=== PATIENT | male | born 1955 | race Caucasian/White ===

== ENCOUNTER 2016-05-27 13:16 | Inpatient (IN) | payer BC ==
[2016-05-27] MEDS ORDERED: Diltiazem DRIP* 100 MG/100 ML ADDV.BAG IVPB ONE (14:27)
[2016-05-27] MEDS ORDERED: Dextrose 50% Syringe 50 ML* 25 GM/50 ML SYRINGE IV PUSH PRN (15:44)
[2016-05-27] MEDS ORDERED: Acetaminophen TAB* 325 MG PO PRN (15:45)
[2016-05-27] MEDS ORDERED: PROCHLORPERAZINE INJ 5 MG/ML 2 ML VIAL IV PRN (15:45)
[2016-05-27] MEDS ORDERED: Digoxin IV* 0.5 MG/2 ML AMP (0.25 MG/ML) IV SLOW PU ONE (16:00)
[2016-05-27] MEDS ORDERED: Magnesium Sulfate 2 GM IV* 2 GM/50 ML BAG IVPB ONE (16:00)
[2016-05-27] MEDS ORDERED: Potassium Chlor TAB* 20 MEQ TAB.ER PO ONE (16:00)
[2016-05-27] MEDS: Diltiazem DRIP* 100 MG/100 ML ADDV.BAG IVPB SCH ×3 (16:32→20:31)
[2016-05-27 16:37] LABS: Hematocrit 45 % (42-52); Hemoglobin 15.1 g/dl (14.0-18.0); Mean Corpuscular HGB Conc 34 g/dl (31-36); Mean Corpuscular Hemoglobin 30 pg (27-31); Mean Corpuscular Volume 90 fL (80-94); Mean Platelet Volume 10 um3 (7.4-10.4); Red Blood Count 5.01 10^6/ul (4.0-5.4); Red Cell Distribution Width 14 % (10.5-15)
[2016-05-27] MEDS: Metoprolol Tartrate TAB* 25 MG PO SCH ×2 (16:37→21:19)
[2016-05-27] MEDS: Enoxaparin(*) 150 MG/ML 1 ML SYRINGE SUBCUT SCH (16:45)
[2016-05-27 16:56] LABS: Troponin I 0.05 ng/mL (<0.04)
[2016-05-27 17:04] LABS: Magnesium 1.7 mg/dL (1.9-2.7)
[2016-05-27 17:05] LABS: BUN/Creatinine Ratio 17.3 (8-20); Calcium 9.5 mg/dL (8.6-10.3); EGFR African American 93.1 (>60); EGFR Non-African American 72.4 (>60); Globulin 2.8 g/dL (2-4); Potassium 3.4 mmol/L (3.5-5.0); Total Bilirubin 0.9 mg/dL (0.2-1.0); Total Protein 6.8 g/dL (6.4-8.9)
[2016-05-27] MEDS: Insulin LISPRO* 1 UNITS UNIT SUBCUT SCH ×3 (18:03→21:19)
[2016-05-27] MEDS: Potassium Chlor TAB* 20 MEQ TAB.ER PO SCH (20:34)
[2016-05-28] MEDS: Enoxaparin(*) 150 MG/ML 1 ML SYRINGE SUBCUT SCH ×2 (03:28→16:55)
[2016-05-28] MEDS: Metoprolol Tartrate TAB* 25 MG PO SCH ×2 (03:28→10:04)
[2016-05-28] MEDS: Diltiazem DRIP* 100 MG/100 ML ADDV.BAG IVPB SCH ×2 (03:35→10:29)
[2016-05-28 05:26] LABS: Hematocrit 46 % (42-52); Hemoglobin 15.3 g/dl (14.0-18.0); Mean Corpuscular HGB Conc 34 g/dl (31-36); Mean Corpuscular Hemoglobin 30 pg (27-31); Mean Corpuscular Volume 90 fL (80-94); Mean Platelet Volume 10 um3 (7.4-10.4); Red Cell Distribution Width 14 % (10.5-15); White Blood Count 9.4 10^3/ul (3.5-10.8)
[2016-05-28 05:31] LABS: Albumin 3.9 g/dL (3.2-5.2); BUN/Creatinine Ratio 22.7 (8-20); Calcium 9.5 mg/dL (8.6-10.3); EGFR African American 112.9 (>60); EGFR Non-African American 87.8 (>60); Globulin 2.9 g/dL (2-4); Potassium 3.7 mmol/L (3.5-5.0); Total Protein 6.8 g/dL (6.4-8.9)
[2016-05-28 05:36] LABS: Troponin I 0.04 ng/mL (<0.04)
[2016-05-28] MEDS: Lisinopril TAB* 10 MG PO SCH (08:36)
[2016-05-28] MEDS: Hydrochlorothiazide TAB* 25 MG PO SCH (08:36)
[2016-05-28] MEDS: Insulin LISPRO* 1 UNITS UNIT SUBCUT SCH ×7 (08:37→21:08)
[2016-05-28] MEDS: Potassium Chlor TAB* 20 MEQ TAB.ER PO SCH ×2 (08:37→16:54)
--- NOTE | 2016-05-28 09:26 | RAD ---
Indication: Elevated transaminases. Real-time sonography of the right upper quadrant was performed. Liver is enlarged measuring up to 18 cm in length. It is diffusely increased in echogenicity consistent with hepatic steatosis. No focal lesions or intrahepatic ductal dilatation is noted. Gallbladder demonstrates no gallstones, pericholecystic fluid or wall thickening. The common duct measures up to 4 mm. Right kidney measures 12.0 x 6.8 x 5.8 cm with no hydronephrosis. A cyst is noted in the posterior upper pole measuring 3.8 x 3.5 x 3.2 cm. The pancreas is limited in evaluation. IMPRESSION: HEPATOMEGALY WITHOUT BILIARY DUCTAL DILATATION. FINDINGS CONSISTENT WITH PARENCHYMAL LIVER DISEASE MOST LIKELY HEPATIC STEATOSIS.
--- NOTE | 2016-05-28 09:36 | HP ---
HISTORY AND PHYSICAL: DATE OF ADMISSION: 05/27/16. TIME OF EVALUATION: 3 p.m. PRIMARY CARE PROVIDER: Lauren Monson MD CONSULTING CUSTOMER CONTACT REPRESENTATIVE: Dr. Mota CHIEF COMPLAINT: Palpitations. HISTORY OF PRESENT ILLNESS: Mr. Linn is a 60-year-old male with a past medical history of hypertension, type-II diabetes, morbid obesity with BMI of 43 , sleep apnea, and gout who presented to the [facility] Emergency Room with complaints of palpitations. The patient states that he has had palpitations for more than 20 years. He had Holter monitor done at that time, and it showed that his palpitations were not life threatening, and he has been on Cardizem and metoprolol for his blood pressure control. He states that he still has palpitations almost daily, but they are very brief, lasting 5 seconds , and he is states that now-a-days he just ignores it. Last night around 7, he was watching TV when he had the sudden onset of a flushing sensation followed by his palpations, but this episode was different in the sense that it lasted much longer. He denied chest pain, shortness of breath, diaphoresis associated with it. He has a blood pressure monitor, when he checked his blood pressure and it had shown the heart rate of 160. He states , he was feeling well so he just decided to go to bed. This morning, he woke up asymptomatic, measured his blood pressure again and his heart rate was in the 40s, so he decided to get ready for work. Before going to work, he checked it one more time and his heart rate was in the 60s. While at work, he had the similar sensation again and he had taken his monitor with him. He checked it once again, and his heart was 160, so he went to [place] [facility]. His EKG revealed atrial fibrillation with a heart rate of 155; and, after evaluation there, the hospital service at [facility] was consulted for transfer to our facility for further evaluation. The patient at this time says that he feels well. Although his heart rate is still elevated, he states he does not feel the palpitations any more. He denies chest pain, shortness of breath, diaphoresis, or any other complaints. He denies any recent trip, fever, chills, urinary or GI complaints. PAST MEDICAL HISTORY: 1. Type-2 diabetes. 2. Hypertension. 3. Hyperlipidemia. 4. Morbid obesity with BMI of 43. 5. Obstructive sleep apnea, on CPAP. 6. Gout. SURGICAL HISTORY: The patient had a tonsillectomy. MEDICATION LIST: 1. Clonidine 0.2 mg p.o. bedtime. 2. Metoprolol succinate 100 mg p.o. b.i.d. 3. Lisinopril 40 mg p.o. daily. 4. Metformin 1000 mg p.o. b.i.d. 5. Hydrochlorothiazide 25 mg p.o. daily. 6. Diltiazem CD 240 mg p.o. b.i.d. ALLERGIES: 1. With ATENOLOL, the patient experienced night terrors. 2. With CANDESARTAN, the patient had hearing loss. 3. With [? GARAMYCIN ?], the patient had eye swelling. 4. His list also mentions VISTARIL AND [? PREMARIN ?], but the patient does not know what reactions he had to those medications. FAMILY HISTORY: The patient was adopted, and he does not know about his family history. SOCIAL HISTORY: He denies any history of tobacco abuse. He states that in his teenage years, he drink heavily, but he totally quit alcohol in his 40s. He does drink five 8-ounce cups of regular coffee every day. He denies any drug use. Surrogate decision maker is his , Ellen Linn, ph# [phone]. REVIEW OF SYSTEMS: A 14-point of review of system was performed and all the pertinent negative and positive findings are in the HPI. PHYSICAL EXAMINATION GENERAL: The patient is a pleasant, morbidly-obese gentleman sitting up in the bed in no acute distress. VITAL SIGNS: Temperature 98.6, heart rate is 140, respiratory rate is 18, oxygen saturation is 96% on room air, blood pressure is 150/100. HEENT: Pupils are equal and moist mucous membranes. CVS: Normal S1 and S2. Irregularly irregular, tachycardiac. CHEST: Breath sounds bilaterally with no added sounds. ABDOMEN: Obese, soft, and bowel sounds are present. EXTREMITIES: There is mild bilateral extremity pitting edema. NEURO: He is alert, awake and oriented x3. Able to move all 4 extremities. LABORATORY AND IMAGING DATA: These results are from [facility] earlier today. CBC showed a WBC of 11.3, hemoglobin 15.3, hematocrit 45 with 212,000 platelets. 57% neutrophils, 29% lymphocytes. INR was 0.98. D-dimer is less than 400. Glucose 198.3, BUN 20, creatinine 1.1, sodium 140, potassium 3.4, chloride 100, carbon dioxide 27, anion gap 16.3, calcium 9.6. LFT's showed total protein 7.1, albumin 3.7, AST 43, ALT 72, CPK 175, troponin was 0.04. EKG done on May 27 at 11:39 showed atrial fibrillation at 155 beats per minute with moderate ST depressions on the anterolateral leads, but I do not have any prior EKGs to compare. ASSESSMENT AND PLAN: Mr. Linn is a 60-year-old male with a past medical history of morbid obesity with a BMI of 43, type 2 diabetes, hypertension, prior history of palpitations (likely SVT), obstructive sleep apnea on CPAP, and gout who presented to [facility] Emergency Room with complaints of found to be an atrial fibrillation, transferred to our facility for further evaluation. 1. Atrial fibrillation with rapid ventricular rate. It is unclear if this is truly his first episode of atrial fibrillation. He has had episodes of palpitations for more than 20 years and, although self-limited, the patient is on metoprolol and diltiazem as outpatient, and this may be controlling his rate and for that reason he may not me symptomatic. He is going to be admitted as inpatient to the telemetry floor. He is going to be continued on Cardizem drip, on a beta matheus, and I am going to give him one dose of digoxin now. If he is on the maximum dose of the Cardizem drip and we cannot obtain control, we may need to transfer him to the Intensive Care Unit for amiodarone drip. I am going to check labs here including electrolytes, thyroid function and cardiac enzymes. He is also going to have an echocardiogram performed, and a cardiologic consultation was requested with Dr. Mota. He has a CHADS2-VASc score of 2 so far (hypertension and diabetes) with further work up pending, but I believe this patient will likely need cardioversions, so the plan is to have him anticoagulated with Lovenox. We discussed risk and benefits of anticoagulation including, but not limited to the risk of bleeding, and the patient is in agreement. He will be kept n.p.o. after midnight in case he does not convert spontaneously for a possible cardioversion in the morning. 2. Troponin elevation. His troponin at [facility] was 0.04, and I suspect this is likely associated with his atrial fibrillation rapid ventricular lead. We are going to check serial troponins here to rule out acute coronary syndrome. 3. Transaminitis. Suspect likely fatty liver in the setting of morbid obesity and type-2 diabetes. I am going to check a right upper quadrant ultrasound to look for biliary pathology and also check hepatitis serology. 4. Type 2 diabetes. The patient is on metformin as outpatient. We are going to hold it for now pending further work up. He will be on a consistent carb diet, and we are going to check fingersticks and cover with a Lispro sliding scale. We are going to check hemoglobin A1c. 5. Hypertension. The patient will be on a Cardizem drip. I am going to continue his hydrochlorothiazide, lisinopril, and he is now on metoprolol 25 mg p.o. q. 6 hours. We are going to continue to monitor his blood pressure; and, if needed, we can add his clonidine again, I will prefer to reserve his blood pressure for rate controlling meds. 6. Obstructive sleep apnea. The patient will be continued on CPAP. 7. DVT prophylaxis. The patient had a score of 4 on the DVT prophylaxis Risk Assessment Guide and he will be anticoagulated with Lovenox. 8. Code status is full code. TIME SPENT: Approximately 65 minutes were spent with the patient and interview, medical records review, physical examination, to complete this admission, and more than half the time was spent [id number] with the patient in coordination of care. CC: Dr. Monson; Dr. Mota * [id number]/[facility] #: [id number] ALYSSA
--- NOTE | 2016-05-28 11:50 | PN ---
Subjective Date of Service: 05/28/16 Interval History: HOSPITALIST PROGRESS NOTE Patient seen and examined at bedside. He offers no new complaints today. Denies chest pain, palpitations, dyspnea or lightheadedness. Family History: Unchanged from Admission Social History: Unchanged from Admission Past Medical History: Unchanged from Admission Objective Active Medications: Acetaminophen (Tylenol Tab*) 650 mg PO Q6H PRN PRN Reason: pain/fever Dextrose (D50w Syringe 50 Ml*) 12.5 gm IV PUSH .FOR FS < 60 - SS PRN PRN Reason: FS < 60 Enoxaparin Sodium (Lovenox(*)) 130 mg SUBCUT Q12H [facility] Last Admin: 05/28/16 03:28 Dose: 130 mg Hydrochlorothiazide (Hydrodiuril Tab*) 25 mg PO DAILY [facility] Last Admin: 05/28/16 08:36 Dose: 25 mg Diltiazem HCl (Cardizem Iv Advan*) 100 mg in 100 mls @ 15 mls/hr IVPB DAILY [facility] PRN Reason: 15 MG/HR Last Admin: 05/28/16 10:29 Dose: 15 mls/hr Insulin Human Lispro (Humalog*) 0 units SUBCUT AC [facility] PRN Reason: Protocol Last Admin: 05/28/16 08:39 Dose: Not Given Insulin Human Lispro (Humalog*) 0 units SUBCUT ACHS [facility] PRN Reason: Protocol Last Admin: 05/28/16 08:37 Dose: 6 unit Lisinopril (Prinivil Tab*) 40 mg PO DAILY [facility] Last Admin: 05/28/16 08:36 Dose: 40 mg Metoprolol Tartrate (Lopressor Tab*) 25 mg PO Q6H [facility] Last Admin: 05/28/16 10:04 Dose: Not Given Potassium Chloride (Klor Con Er Tab*) 40 meq PO BID WITH MEALS [facility] Last Admin: 05/28/16 08:37 Dose: 40 meq Prochlorperazine Edisylate (Compazine Inj*) 5 mg IV Q6H PRN PRN Reason: NAUSEA/VOMITING Vital Signs 05/27/16 05/27/16 05/27/16 14:29 14:30 14:35 Temperature Pulse Rate 89 76 Respiratory 18 18 19 Rate Blood Pressure 151/89 121/104 (mmHg) O2 Sat by Pulse 95 93 Oximetry 0205/28/16 05/28/16 08:00 09:00 10:00 Temperature Pulse Rate 85 91 128 Respiratory 22 15 20 Rate Blood Pressure (mmHg) O2 Sat by Pulse 97 96 97 Oximetry Oxygen Devices in Use Now: None Appearance: Pleasant obese male sitting up in a chair in NAD. Eyes: No Scleral Icterus Ears/Nose/Mouth/Throat: Mucous Membranes Moist Neck: Trachea Midline Respiratory: Symmetrical Chest Expansion and Respiratory Effort, Clear to Auscultation Cardiovascular: - - Normal S1 and S2, irregularly irregular, tachycardic Abdominal: NL Sounds; No Tenderness; No Distention Neurological: Alert and Oriented x 3, NL Muscle Strength and Tone Lines/Tubes/Other Access: Clean, Dry and Intact Peripheral IV Nutrition: Taking PO's Result Diagrams: 05/28/16 04:43 05/28/16 04:43 Assess/Plan/Problems-Billing Assessment: Mr. Linn is a 60yo M with PMH of morbid obesity with a BMI of 43, HTN, HLD , DWIGHT on CPAP, gout, who presented to [facility] with c/o palpitations, found to be in Afib with RVR, then transferred to our Facility for further evaluation. - Patient Problems (1) Atrial fibrillation with RVR Comment: - Patient remains asymptomatic, but rate is still uncontrolled. - Cardiology plans to perform transesophageal echo with cardioversion later today. - Continue diltiazem drip and metoprolol. - Anticoagulation with Lovenox for now, will discuss other agents after CV. (2) Elevated troponin Comment: - Minimal elevation likely secondary to Afib with RVR, but he does have risk factors for CAD. Will need stress test for further risk stratification , probably as outpatient. (3) Transaminitis Comment: - Labs from [place] revealed transaminitis, but follow up here has been normal. - Follow hepatitis serologies. - RUQ US compatible with hepatic steatosis. (4) Type 2 diabetes mellitus Comment: - Continue Lispro SS. (5) HTN (hypertension) Comment: - Controlled. - Continue Diltiazem and Metoprolol. (6) Obstructive sleep apnea Comment: - Continue CPAP. (7) DVT prophylaxis Comment: - Lovenox. (8) Full code status Status and Disposition: Inpatient.
[2016-05-28] MEDS ORDERED: Midazolam* 1 MG/ML 5 ML VIAL (5 MG) ONE (13:49)
[2016-05-28] MEDS ORDERED: Lidocaine 2% VISCOUS* 15 ML UDC ONE (13:50)
[2016-05-28] MEDS ORDERED: fentaNYL* 50 MCG/ML 2 ML VIAL (100 MCG VIAL) ONE (13:50)
[2016-05-28] MEDS ORDERED: Naloxone* 0.4 MG/ML 1 ML VIAL ONE (13:50)
[2016-05-28] MEDS ORDERED: Flumazenil* 0.1 MG/ML 5 ML MDV ONE (13:50)
[2016-05-28] MEDS ORDERED: Diltiazem DRIP* 100 MG/100 ML ADDV.BAG IVPB SCH (15:00)
--- NOTE | 2016-05-28 15:41 | TEE ---
Patient: SUYAPA MARTINEZ [facility] Rec#: [id number] : 1955 Date: 05/28/2016 Age: 60y Height: 172.7 cm / 68.0 in Weight: 128.4 kg / 283.0 lbs Sex: M BSA: 2.37 Room#: [facility] Admit Date#: 05/27/2016 Type: Inpatient Referring: Elise Kemp MD Performing: Bharat Mota MD Reading: Bharat Mota MD Associate Financial Planner: Nakia Ryan RN RDCS Nurse: CHUCK Reis Alicia CC: Lauren Monson MD Transesophageal Echocardiogram Indication: A-FIB BP: 149/107 HR: 150 Rhythm: A-Fib Findings History: HTN, DM, DWIGHT with CPAP. Technical Comments: The study quality is good. Left Ventricle: The left ventricular chamber size is normal. Left ventricular systolic function is at the lower limits of normal. The estimated ejection fraction is 50-55%. Difficult to make an accurate estimate given rapid a fib. The assessment of diastolic function is non-diagnostic. Left Atrium: The left atrium is moderately dilated. No thrombus is visualized within the left atrium. There is no thrombus visualized in the left atrial appendage. Right Ventricle: The right ventricular cavity size is normal. The right ventricular global systolic function is low normal. Right Atrium: The right atrium is moderately dilated. Interatrial septum appears intact without evidence of shunting. There is no patent foramen ovale visualized. The bubble study is negative. Aortic Valve: The aortic valve is trileaflet. The aortic valve leaflets are mildly thickened. There is a trace of aortic regurgitation. There is no evidence of aortic stenosis. Mitral Valve: The mitral valve leaflets are mildly thickened. There is a trace of mitral regurgitation. There is no evidence of mitral stenosis. Tricuspid Valve: The tricuspid valve leaflets are normal. There is mild tricuspid regurgitation. There is no tricuspid stenosis. Pulmonic Valve: The pulmonic valve appears normal. There is a trace pulmonic regurgitation. Pericardium: There is no significant pericardial effusion. Aorta: There is no dilatation of the ascending aorta. There is no dilation of the aortic root.There is mild atherosclerotic plaque seen in the transverse and descending aorta. Pulmonary Artery: The main pulmonary artery appears normal. Venous: The bicaval view was obtained and appears normal. The pulmonary veins appear normal in size. 2 of 4 pulmonary veins visualized and interrogated with color and spectral Doppler. LASHA Procedures: All standard views were attempted within the limitations of patient tolerance and safety. History and physical as well as labs were reviewed. The patient was in a fasting state. Risks and benefits of the procedure, including alternatives, were discussed and written informed consent was obtained. The patient and/or their health care technical sales representative expressed understanding of the procedure, risks and benefits. Baseline and continuous monitoring of blood pressure, heart rate, pulse oximetry and heart rhythm was performed throughout the procedure. The appropriate time-out procedure was performed as per [facility] protocol. The patient was placed in the left lateral decubitus position. The patient's posterior pharynx was anesthetized with 20ml of 2% viscous lidocaine. The patient received IV Midazolam with a total dose of 4 mg. The patient received IV Fentanyl with a total dose of 50 mcg. An oral bite block was inserted for protection of oral dentition. The multiplane transesophageal echocardiogram probe was inserted through the posterior oropharynx and advanced into the esophagus without difficulty. Multiple 2D images were obtained of the heart and its related structures. Color flow Doppler was used for evaluation. Spectral Doppler was also used. The atrial septum was interrogated with color flow Doppler. At the conclusion of the procedure the probe was removed with continuous suction without complications. The patient tolerated the procedure with no apparent complications. Contrast: Normal saline was used as contrast for the bubble study. Intravenous contrast was used to help determine presence of intracardiac shunting. Image 44. Conclusions Left ventricular systolic function is at the lower limits of normal. The estimated ejection fraction is 50-55%. Difficult to make an accurate estimate given rapid a fib. The left atrium is moderately dilated. No thrombus is visualized within the left atrium. There is no thrombus visualized in the left atrial appendage. The right atrium is moderately dilated. There is a trace of aortic regurgitation. There is a trace of mitral regurgitation. There is mild tricuspid regurgitation. There is a trace pulmonic regurgitation. Measurements Name Value Normal Range Aortic Annulus 2.3 cm (1.4 - 2.6) Ao root diameter (2D) 3.3 cm (2.1 - 3.5) Ascending Ao 3.1 cm (2.1 - 3.4) Name Value Normal Range MV E-wave Vmax 0.9 m/sec - MV deceleration time 63 msec -
[2016-05-28] MEDS: Diltiazem CD CAP* 240 MG PO SCH (17:48)
--- NOTE | 2016-05-28 19:29 | CONS ---
CONSULTATION REPORT: DATE OF CONSULT: 05/28/16 HISTORY OF PRESENT ILLNESS: I was asked by Dr. Anne from the hospitalist service to see this 60-year-old male patient with complex comorbidities, who was transferred from [facility] with tachycardia and apparently was found to be in atrial fibrillation. He was started on Cardizem IV and he is still tachycardic. He does have significant comorbidities including morbid obesity; sleep apnea, on CPAP; hyperlipidemia; systemic arterial hypertension; diabetes mellitus, type 2. Cardiology consult was requested for further management of his rapid atrial fibrillation. When speaking to him he gives no history. There is some history of atrial fibrillation in the past. He gives no symptoms of chest pain. He does have no active shortness of breath, no nausea, no vomiting, no hematochezia, no skin rash, no abdominal pain, no syncope. No history of myocardial infarction. No history of coronary artery disease is appreciated. PAST MEDICAL HISTORY: Includes: Systemic arterial hypertension; diabetes mellitus, type 2; hyperlipidemia; morbid obesity; obstructive sleep apnea, on CPAP; history of gout disease. PAST SURGICAL HISTORY: Includes tonsillectomy. MEDICATIONS: As an outpatient include: 1. Clonidine 0.2 mg daily. 2. Metoprolol 100 mg twice a day. 3. Lisinopril 40 mg daily. 4. Metformin 1000 mg twice a day. 5. Hydrochlorothiazide 25 mg daily. 6. Diltiazem CD 240 mg twice a day. His medications as an inpatient include: 1. Tylenol 650 mg p.o. q.6 hours p.r.n. for pain. 2. Diltiazem 10 mg per hour IV. 3. Lovenox 130 mg subcu q.12 hours. 4. Hydrochlorothiazide 25 mg daily. 5. Insulin adjusted to his blood sugar. 6. Lisinopril 40 mg daily. 7. Metoprolol 100 mg twice a day. 8. Potassium 40 mEq twice a day. ALLERGIES: He is allergic to ATENOLOL with night terrors, questionable allergy to CANDESARTAN. FAMILY HISTORY: The patient was adopted. SOCIAL HISTORY: No history of smoking, no significant alcohol drinking, no history of illicit drug use. He does drink coffee five of the 8-ounce cups of regular coffee daily. He used to drink alcohol heavily but he quit. REVIEW OF SYSTEMS: Review of all other systems essentially is negative. PHYSICAL EXAM: He is awake, alert, and oriented. He is in not acute distress. He had no chest pain. His vitals: Heart rate is 160, he is in AFib rapid, he is afebrile, blood pressure is 140/70. Head and Neck: Normocephalic, atraumatic head. Ears, nose, and throat essentially benign. Neck supple. JVP is not elevated. No carotid bruit. No masses in the neck are appreciated. Chest: Clear to auscultation. No rales, no wheeze, no added sounds appreciated. Heart with tachycardic, regular S1, S2. No added sounds. No gallops and no rubs. Abdomen: Benign, obese, soft. Positive bowel sounds. Extremities: No edema. No cyanosis and no clubbing. Skin exam is normal. Psych: Normal affect and mood. ADJUNCT PSYCHOLOGY PROFESSOR: No focal deficits are appreciated. LABORATORY DATA: His labs showed the following: White blood cells 9.4, hemoglobin 15.3, hematocrit 46, and platelets 188. Chemistry: Sodium 135, potassium 3.7, chloride 101, total CO2 26, BUN 20, creatinine 0.88, sugar 204. Troponin 0.06 and other 1.04. IMPRESSION: The patient is a 60-year-old male patient with: 1. Rapid atrial fibrillation. 2. Systemic arterial hypertension. 3. Diabetes mellitus, type 2. 4. Morbid obesity. 5. Sleep apnea, on CPAP. 6. Hyperlipidemia. 7. Significant caffeinated drinks. PLAN: He does have significant comorbidities. I agree with rate controlling on IV Cardizem for now. I agree with anticoagulation. His CHADS-VASc scoring system is high based on his comorbidities as outlined above. Avoid alcohol, avoid caffeinated drinks, avoid stimulants, and stay well hydrated. Keep potassium and magnesium within normal limits and plan for transesophageal echo. Cardioversion to be done if his transesophageal echo showed no evidence of clots in the left atrium or in the left atrial appendage, we will proceed with direct current cardioversion. This was discussed with the patient. I answered all his concerns and questions up to his satisfaction. He is willing to proceed with the plan. TIME SPENT: More than half of at least 60 to 65 plus minutes was [id number] in the education and counseling mode, explaining all of the above to the patient. CC: Dr. Anne; Dr. Monson; Dr. Mota * [id number]/[facility] #: [id number] ALYSSA
[2016-05-28] MEDS: Metoprolol Succinate XL TAB* 100 MG PO SCH ×2 (20:49→22:16)
--- NOTE | 2016-05-28 22:33 | CARD ---
DIRECT CURRENT CARDIOVERSION REPORT: DATE OF PROCEDURE: 05/28/16 - ROOM #442 INDICATION: The patient is a 60-year-old male patient who was hospitalized with rapid atrial fibrillation. He continues to be in rapid AFib symptomatic after IV Cardizem drip. He did receive anticoagulation in the form of Lovenox injection. A transesophageal echocardiogram was further requested to guide this cardioversion. DESCRIPTION OF PROCEDURE: After informed written consent had been obtained with continuous blood pressure, pulse oximetry, and heart rate monitoring and after performing a transesophageal echocardiography, please refer to a full separate report that was showing no evidence of clots or thrombus in the left atrium or in the left atrial appendage. There were no masses, no vegetations. The patient did receive initially a total dose of 4 mg intravenous Versed and then 50 mcg of fentanyl intravenously and after the LASHA, he received an additional 2 mg intravenous dose of Versed and 25 mcg of fentanyl. After than, a synchronized biphasic 200 joules were delivered to the patient once successfully converting him to normal sinus rhythm. There were no complications and the patient tolerated procedure very well. CONCLUSION: Successful direct current cardioversion for atrial fibrillation. There were no complications and the patient tolerated the procedure very well. CC: Hospitalist Service; Dr. Lezama; Dr. Mota * [id number]/[facility] #: [id number] [facility]
[2016-05-29] MEDS: Enoxaparin(*) 150 MG/ML 1 ML SYRINGE SUBCUT SCH (03:19)
[2016-05-29 07:28] VITALS: BP 135/73
[2016-05-29 09:30] LABS: HDL Cholesterol 34.1 mg/dL
[2016-05-29] MEDS: Insulin LISPRO* 1 UNITS UNIT SUBCUT SCH ×2 (09:31→09:32)
[2016-05-29] MEDS: Potassium Chlor TAB* 20 MEQ TAB.ER PO SCH (09:32)
[2016-05-29] MEDS: Diltiazem CD CAP* 240 MG PO SCH (09:33)
[2016-05-29] MEDS: Lisinopril TAB* 10 MG PO SCH (09:33)
[2016-05-29] MEDS: Hydrochlorothiazide TAB* 25 MG PO SCH (09:33)
[2016-05-29] MEDS: Metoprolol Succinate XL TAB* 100 MG PO SCH (09:33)
--- NOTE | 2016-05-29 21:13 | DS ---
CC: Dr. Lauren Monson; Dr. Mota DISCHARGE SUMMARY: DATE OF ADMISSION: 05/27/16 DATE OF DISCHARGE: 05/29/16 PRIMARY CARE PROVIDER: Dr. Lauren Monson. CONSULTING BUSINESS SUPPORT LIAISON: Dr. Mota. DISCHARGE DIAGNOSES: 1. Atrial fibrillation with rapid ventricular rate, status post cardioversion. 2. Minimally elevated troponin, likely associated with atrial fibrillation. 3. Transaminitis, likely associated with hepatic steatosis. SECONDARY DIAGNOSES: 1. Type 2 diabetes. 2. Hypertension. 3. Hyperlipidemia. 4. Morbid obesity with a BMI of 43. 5. Obstructive sleep apnea, on CPAP. 6. Gout. 7. Status post tonsillectomy. MEDICATIONS: 1. Metoprolol succinate 100 mg p.o. b.i.d. 2. Lisinopril 40 mg p.o. daily. 3. Metformin 1000 mg p.o. b.i.d. 4. Hydrochlorothiazide 25 mg p.o. daily. 5. Diltiazem CD 240 mg p.o. b.i.d. 6. Clonidine was discontinued. NEW MEDICATIONS: 1. Potassium chloride 20 mEq p.o. daily. 2. Eliquis 5 mg p.o. b.i.d. HOSPITAL COURSE: Mr. Linn is a 60-year-old male with a past medical history as stated above w ho presented to the emergency room at [facility] with complaints of palpitations. For more d etails about his presentation, I refer you to my history and physical from 05/27/16 but in summary, the patient started to have palpitations the day prior to admission when she was in [facility] and was found to be in atrial fibrillation with a rapid ventricular rate of 160 and was transferre d to our facility for further evaluation and treatment. The patient was treated with Cardizem drip, metoprolol and digoxin, but rate control was still diffi cult. He was seen in consultation by Cardiology, (Dr. Mota), and his plan was for a transesoph ageal echocardiogram with cardioversion. The procedure was performed on 05/28/16. The transesophag eal echocardiogram showed ejection fraction of 50% to 55%. No thrombus was visualized on left atriu m or left atrial appendage and a successful cardioversion was performed. Dr. Mota recommended avoiding alcohol, caffeinated drinks, and other stimulants and to stay well hydrated. He also recom mended keeping potassium and magnesium within normal limits. The patient's BRITTANY score is 2, (hypert ension and diabetes), and the plan is for him to continue anticoagulation. We have reviewed risks a nd benefits with the patient on multiple modalities of anticoagulation and we have elected to start Eliquis. The patient is aware of the risk of bleeding, but he agrees that at this point benefit geraldine passes the risk. If the patient remains in sinus rhythm, Cardiology could consider discontinuing an ticoagulation as outpatient, but with his history I believe he is probably going to have recurrent a trial fibrillation. Dr. Mota recommended continuation of metoprolol and Cardizem, but if the p atient has recurrence of atrial fibrillation, he may need different antiarrhythmics. The patient had minimally elevated troponins of 0.05, 0.06, and 0.04. This is likely secondary to a trial fibrillation with rapid ventricular rate, but the patient certainly has risk factors for coron herrera artery disease and we will benefit further CAD risk stratification as outpatient, so when he fol lows up with Dr. Mota, I believe arrangement should be made for a stress test. On his blood test from [place], the patient was noted to have mild transaminitis. Hepatitis serolog y was negative and right upper quadrant ultrasound showed changes suggestive of hepatic steatosis. The patient does have hyperlipidemia with significant hypertriglyceridemia with triglycerides of 434 . This will need to be addressed as outpatient. At this point, we cannot measure his LDL due to hi s triglycerides. He will follow up with Dr. Monson next week and I believe if he cannot control th is with diet, he should be started on fibrates. He was referred to the [facility] for further management of his obesity and diabetes, and they can also address dietary changes f or his hyperlipidemia. The patient's hemoglobin A1c was 8.5. He is being discharged on his usual dose of metformin, but I believe he would have great benefit from further dietary education and dietary compliance. While in the hospital, his glucose remained fairly well controlled and he did not require a lot of coverage, so I believe he is able to change his diet as outpatient. He may be able to do well. Without clonidine, the patient's blood pressure has been well controlled, especially after he was ca rdioverted, so at this point his clonidine was discontinued, but this will need to be monitored as o utpatient as his blood pressure may trend up again, especially if he returns to his old diet. The patient was felt to be medically stable for discharge today to follow up with Dr. Monson and Dr Ny Mota as outpatient. PHYSICAL EXAMINATION: Vital Signs: Temperature 97.9, heart rate is 68, respiratory rate is 16, oxy gen saturation is 96% on room air, blood pressure is 135/73. General: The patient is a pleasant mo rbid obese gentleman sitting up in the chair, in no acute distress. CVS: Normal S1, S2. Regular r ate and rhythm. Chest: Breath sounds present bilaterally with no added sounds. Abdomen: Obese and soft. Bowel sounds are present. Extremities: There is mild bilateral lower extremity edema. Dre ro: He is alert, awake, and oriented x3. Able to move all 4 extremities. DIET: Heart healthy consistent carb diet. The patient was advised to avoid caffeine. ACTIVITY: As tolerated. The patient was advised to avoid excessive physical exertion like ploughin g his driveway. DISPOSITION: To home. STATUS WHILE IN THE HOSPITAL: Inpatient. Please keep in mind this is a summarized version of this patient's hospital stay. If you need more i nformation, please feel free to call me at [phone] or please obtain the full medical records. TIME SPENT: Approximately 45 minutes was spent to complete this discharge. All the patient's and h is 's questions were answered. [id number] #: [id number]
== END 2016-05-29 11:10 | disposition home or self-care (01) | DRG 201 ==
LOC: MEDTELE 14:22
PROVIDERS: ADMIT Internal Medicine; ATTEND Internal Medicine
PROC: 5A2204Z Restoration of Cardiac Rhythm, Single (ICD-10-PCS; principal; 2016-05-28 13:45)
DX: I48.91 Unspecified atrial fibrillation (principal); Z68.41 Body mass index [BMI] 40.0-44.9, adult; K76.0 Fatty (change of) liver, not elsewhere classified; E11.9 Type 2 diabetes mellitus without complications; I10 Essential (primary) hypertension; E66.01 Morbid (severe) obesity due to excess calories; G47.33 Obstructive sleep apnea (adult) (pediatric); M10.9 Gout, unspecified; Z79.84 Long term (current) use of oral hypoglycemic drugs; E78.1 Pure hyperglyceridemia; E78.5 Hyperlipidemia, unspecified; Z88.8 Allergy status to other drugs, medicaments and biological substances
CPT/HCPCS: 36415; 76705; 80053; 80061; 80074; 83036; 83735; 84443; 84484; 85025; 92960; 93005; 93312; 93325; 94660; A9270-GY; J1160; J1650; J2250; J2310; J3010; J3475

== ENCOUNTER 2019-10-16 21:13 | Inpatient (IN) ==
[2019-10-16] MEDS ORDERED: NS 0.9% 1000 ml BAG 1,000 ML IV ONE (21:26)
[2019-10-16] MEDS ORDERED: Diltiazem IV push/loading dose 5 MG/ML 5 ML vial (25 mg) IV SLOW PU ONE (22:01)
[2019-10-16 22:03] LABS: ABS Eosinophils 0.2 10^3/ul (0-0.6); ABS Lymphocytes 2.5 10^3/ul (1.0-4.8); ABS Monocytes 0.8 10^3/ul (0-0.8); Hematocrit 44 % (42-52); Hemoglobin 15.5 g/dL (14.0-18.0); Mean Corpuscular HGB Conc 35 g/dL (31-36); Mean Corpuscular Hemoglobin 32 pg (27-31); Mean Corpuscular Volume 92 fL (80-94); Mean Platelet Volume 8.9 fL (7.4-10.4); Platelet Count 201 10^3/uL (150-450); Red Blood Count 4.78 10^6 /uL (4.18-5.48); Red Cell Distribution Width 14 % (10-15); White Blood Count 8.7 10^3/uL (3.5-10.8)
[2019-10-16 22:09] LABS: INR 1.06 (0.82-1.09)
[2019-10-16 22:43] LABS: TSH (Thyroid Stimulating Horm) 1.17 mcIU/mL (0.34-5.60)
[2019-10-16 22:54] LABS: Albumin 4.5 g/dL (3.2-5.2); Calcium 10.4 mg/dL (8.6-10.3); Magnesium 1.8 mg/dL (1.9-2.7); Potassium 3.8 mmol/L (3.5-5.0); Total Bilirubin 0.7 mg/dL (0.2-1.0)
[2019-10-16 23:00] LABS: Albumin/Globulin Ratio 1.7 (1-3); BUN/Creatinine Ratio 20.4 (8-20); EGFR African American 98.7 (>60); EGFR Non-African American 81.5 (>60); Globulin 2.6 g/dL (2-4); Total Protein 7.1 g/dL (6.4-8.9)
[2019-10-16] MEDS ORDERED: Diltiazem IV BAG D5W Premix 125 MG/125 ML BAG IV SCH (23:45)
[2019-10-17] MEDS ORDERED: Dextrose 50% Syringe 50 ml 25 GM/50 ML SYRINGE IV PUSH PRN (01:55)
[2019-10-17] MEDS ORDERED: Magnesium Sulfate 2 gm BAG 2 GM/50 ML BAG IVPB ONE (01:55)
[2019-10-17] MEDS ORDERED: Diltiazem IV BAG D5W Premix 125 MG/125 ML BAG IV SCH (02:00)
[2019-10-17] MEDS ORDERED: NS 0.9% 1000 ml BAG 1,000 ML IV SCH (02:00)
[2019-10-17] MEDS: KCL 10 MEQ/50 ML IVPREMIX 10 MEQ/50 ML BAG IV SCH ×3 (03:22→06:20)
[2019-10-17] MEDS: Amiodarone 360 MG IVPREMIX 360 MG/200 ML BAG IV ONE ×2 (03:23→04:42)
[2019-10-17 04:28] LABS: Urine Appearance Clear; Urine Bilirubin Negative (Negative); Urine Blood Negative (Negative); Urine Color Straw; Urine Glucose Negative (Negative); Urine Ketones Trace (Negative); Urine Nitrite Negative (Negative); Urine Protein Negative (Negative); Urine Specific Gravity 1.006 (1.010-1.030); Urine Urobilinogen Negative (Negative)
[2019-10-17] MEDS ORDERED: Amiodarone 360 MG IVPREMIX 360 MG/200 ML BAG IV SCH ×2 (05:00→09:23)
[2019-10-17] MEDS: Insulin LISPRO 100 units/ml(*) SUBCUT SCH ×3 (05:26→17:23)
[2019-10-17 06:40] LABS: INR 1.03 (0.82-1.09)
[2019-10-17 06:45] LABS: BUN/Creatinine Ratio 18.4 (8-20); EGFR African American 124.6 (>60); EGFR Non-African American 102.9 (>60); Potassium 3.7 mmol/L (3.5-5.0)
[2019-10-17 06:50] LABS: ABS Eosinophils 0.1 10^3/ul (0-0.6); ABS Lymphocytes 2.1 10^3/ul (1.0-4.8); ABS Monocytes 0.8 10^3/ul (0-0.8); Eosinophil % 1.7 %; Hematocrit 42 % (42-52); Hemoglobin 14.4 g/dL (14.0-18.0); Lymphocyte % 25.9 %; Mean Corpuscular HGB Conc 34 g/dL (31-36); Mean Corpuscular Hemoglobin 32 pg (27-31); Mean Corpuscular Volume 93 fL (80-94); Mean Platelet Volume 9.4 fL (7.4-10.4); Platelet Count 189 10^3/uL (150-450); Red Cell Distribution Width 14 % (10-15); White Blood Count 8.3 10^3/uL (3.5-10.8)
[2019-10-17] MEDS ORDERED: Potassium Chlor 20 meq TAB.ER PO SCH (09:00)
[2019-10-17] MEDS ORDERED: Amiodarone 400 mg TAB PO SCH (10:00)
[2019-10-17] MEDS ORDERED: Midazolam 5 mg/5 ml VIAL 1 mg/ml 5 ml VIAL (5 mg) ONE (14:26)
[2019-10-17] MEDS ORDERED: fentaNYL 100 mcg/2 ml 50 MCG/ML VIAL ONE (14:26)
[2019-10-17] MEDS ORDERED: Naloxone 0.4 mg VIAL 0.4 mg/ml 1 ml VIAL ONE (14:26)
[2019-10-17] MEDS ORDERED: Flumazenil 0.5 mg/5 ml 0.1 MG/ML 5 ml VIAL ONE (14:26)
[2019-10-17 17:06] VITALS: BP 90/59
== END 2019-10-17 19:00 | disposition home or self-care (01) | DRG 309 ==
LOC: ED 21:13 → ICU 10-17 01:55
PROVIDERS: ADMIT Nurse Practitioner Family; ATTEND Internal Medicine Critical Care Medicine

== ENCOUNTER 2019-10-18 19:23 | Inpatient (IN) ==
[2019-10-18] MEDS ORDERED: NS 0.9% 1000 ml BAG 1,000 ML IV ONE (20:04)
[2019-10-18] MEDS ORDERED: Diltiazem IV push/loading dose 5 MG/ML 5 ML vial (25 mg) IV SLOW PU ONE ×3 (20:11→22:18)
[2019-10-18 20:45] LABS: ABS Basophils 0.1 10^3/ul (0-0.2); ABS Eosinophils 0.2 10^3/ul (0-0.6); ABS Lymphocytes 2.6 10^3/ul (1.0-4.8); ABS Monocytes 0.7 10^3/ul (0-0.8); Eosinophil % 1.9 %; Hematocrit 42 % (42-52); Hemoglobin 14.7 g/dL (14.0-18.0); Lymphocyte % 31.7 %; Mean Corpuscular HGB Conc 35 g/dL (31-36); Mean Corpuscular Hemoglobin 33 pg (27-31); Mean Corpuscular Volume 93 fL (80-94); Mean Platelet Volume 9.1 fL (7.4-10.4); Nucleated Red Blood Cells % 0.1; Platelet Count 199 10^3/uL (150-450); Red Blood Count 4.51 10^6 /uL (4.18-5.48); Red Cell Distribution Width 14 % (10-15); White Blood Count 8.1 10^3/uL (3.5-10.8)
[2019-10-18 20:54] LABS: INR 1.17 (0.82-1.09)
[2019-10-18 21:02] LABS: Albumin 4.2 g/dL (3.2-5.2); Albumin/Globulin Ratio 1.4 (1-3); BUN/Creatinine Ratio 20.9 (8-20); Calcium 9.7 mg/dL (8.6-10.3); EGFR African American 77.2 (>60); EGFR Non-African American 63.8 (>60); Globulin 2.9 g/dL (2-4); Potassium 3.9 mmol/L (3.5-5.0); Total Bilirubin 0.9 mg/dL (0.2-1.0); Total Protein 7.1 g/dL (6.4-8.9); Troponin I 0.01 ng/mL (<0.03)
[2019-10-18] MEDS ORDERED: Diltiazem IV BAG D5W Premix 125 MG/125 ML BAG IV SCH ×2 (22:00→23:00)
[2019-10-18 22:26] LABS: TSH (Thyroid Stimulating Horm) 0.96 mcIU/mL (0.34-5.60)
[2019-10-18] MEDS ORDERED: Dextrose 50% Syringe 50 ml 25 GM/50 ML SYRINGE IV PUSH PRN (23:00)
[2019-10-19] MEDS: Esmolol 10 MG/ML IVPREMIX 2,500 MG/250 ML BAG IV SCH ×3 (05:03→07:53)
[2019-10-19] MEDS: Potassium Chlor 20 meq TAB.ER PO SCH (07:58)
[2019-10-19] MEDS: Amiodarone 400 mg TAB PO SCH ×2 (07:59→21:01)
[2019-10-19] MEDS: Amiodarone 150 mg IVPREMIX 150 MG/100 ML BAG IV SCH ×2 (08:53→09:19)
[2019-10-19] MEDS: Insulin LISPRO 100 units/ml(*) SUBCUT SCH ×4 (09:14→21:01)
[2019-10-19] MEDS ORDERED: NS 0.9% 1000 ML - LV 1,000 ML/1,000 ML IV.FLUID IV SCH (10:00)
[2019-10-19] MEDS ORDERED: fentaNYL 100 mcg/2 ml 50 MCG/ML VIAL ONE (11:10)
[2019-10-19] MEDS ORDERED: Naloxone 0.4 mg VIAL 0.4 mg/ml 1 ml VIAL ONE (11:10)
[2019-10-19] MEDS ORDERED: Flumazenil 0.5 mg/5 ml 0.1 MG/ML 5 ml VIAL ONE (11:10)
[2019-10-19] MEDS ORDERED: Midazolam 5 mg/5 ml VIAL 1 mg/ml 5 ml VIAL (5 mg) ONE (11:10)
[2019-10-19 11:59] LABS: BUN/Creatinine Ratio 17.2 (8-20); EGFR African American 106.6 (>60); EGFR Non-African American 88.1 (>60)
[2019-10-19 12:00] LABS: Potassium 3.9 mmol/L (3.5-5.0)
[2019-10-19] MEDS ORDERED: Amiodarone 360 MG IVPREMIX 360 MG/200 ML BAG IV ONE (12:20)
[2019-10-19] MEDS: Amiodarone 360 MG IVPREMIX 360 MG/200 ML BAG IV SCH (18:01)
[2019-10-20 04:48] LABS: ABS Eosinophils 0.2 10^3/ul (0-0.6); ABS Lymphocytes 2.4 10^3/ul (1.0-4.8); ABS Monocytes 0.7 10^3/ul (0-0.8); Eosinophil % 2.5 %; Hematocrit 44 % (42-52); Hemoglobin 14.8 g/dL (14.0-18.0); Mean Corpuscular HGB Conc 34 g/dL (31-36); Mean Corpuscular Hemoglobin 33 pg (27-31); Mean Corpuscular Volume 95 fL (80-94); Mean Platelet Volume 9.5 fL (7.4-10.4); Nucleated Red Blood Cells % 0.1; Platelet Count 154 10^3/uL (150-450); Red Blood Count 4.55 10^6 /uL (4.18-5.48); Red Cell Distribution Width 14 % (10-15); White Blood Count 7.6 10^3/uL (3.5-10.8)
[2019-10-20 04:58] LABS: Albumin 3.4 g/dL (3.2-5.2); Calcium 8.9 mg/dL (8.6-10.3); Magnesium 1.9 mg/dL (1.9-2.7); Potassium 3.8 mmol/L (3.5-5.0); Total Bilirubin 0.8 mg/dL (0.2-1.0)
[2019-10-20 05:04] LABS: Albumin/Globulin Ratio 1.3 (1-3); BUN/Creatinine Ratio 16.7 (8-20); EGFR African American 102.5 (>60); EGFR Non-African American 84.7 (>60); Globulin 2.6 g/dL (2-4); Phosphorus 3.6 mg/dL (2.5-5.0)
[2019-10-20] MEDS: Amiodarone 360 MG IVPREMIX 360 MG/200 ML BAG IV SCH (06:07)
[2019-10-20] MEDS: Amiodarone 400 mg TAB PO SCH (08:02)
[2019-10-20] MEDS: Potassium Chlor 20 meq TAB.ER PO SCH (08:02)
[2019-10-20] MEDS: Insulin LISPRO 100 units/ml(*) SUBCUT SCH ×2 (08:03→12:21)
[2019-10-20] MEDS ORDERED: fentaNYL 100 mcg/2 ml 50 MCG/ML VIAL ONE (08:14)
[2019-10-20] MEDS ORDERED: Midazolam 5 mg/5 ml VIAL 1 mg/ml 5 ml VIAL (5 mg) ONE (08:14)
[2019-10-20] MEDS ORDERED: Flumazenil 0.5 mg/5 ml 0.1 MG/ML 5 ml VIAL ONE (08:15)
[2019-10-20] MEDS ORDERED: Naloxone 0.4 mg VIAL 0.4 mg/ml 1 ml VIAL ONE (08:15)
[2019-10-20] MEDS ORDERED: Perflutren Lipid Microsphere 3 ML VIAL ONE (10:57)
[2019-10-20 17:10] VITALS: BP 131/69
== END 2019-10-20 17:00 | disposition home or self-care (01) | DRG 309 ==
LOC: ED 19:23 → ICU 21:53
PROVIDERS: ADMIT Internal Medicine; ATTEND Hospitalist

== ENCOUNTER 2021-06-03 10:47 | Observation (INO) ==
[2021-06-03 13:21] LABS: ABS Basophils 0.1 10^3/ul (0-0.2); ABS Eosinophils 0.1 10^3/ul (0-0.6); ABS Lymphocytes 2.6 10^3/ul (1.0-4.8); ABS Monocytes 0.7 10^3/ul (0-0.8); ABS Neutrophils 4.6 10^3/ul (1.5-7.7); Eosinophil % 0.9 %; Hematocrit 45 % (42-52); Hemoglobin 15.1 g/dL (14.0-18.0); Lymphocyte % 31.7 %; Mean Corpuscular HGB Conc 34 g/dL (31-36); Mean Corpuscular Hemoglobin 31 pg (27-31); Mean Corpuscular Volume 92 fL (80-94); Mean Platelet Volume 8.5 fL (7.4-10.4); Platelet Count 239 10^3/uL (150-450); Red Blood Count 4.87 10^6 /uL (4.18-5.48); Red Cell Distribution Width 15 % (10-15); White Blood Count 8.1 10^3/uL (3.5-10.8)
[2021-06-03 13:31] LABS: INR 1.33 (0.86-1.15)
[2021-06-03 13:38] LABS: Albumin 4.1 g/dL (3.2-5.2); Albumin/Globulin Ratio 1.4 (1-3); Calcium 9.4 mg/dL (8.6-10.3); Globulin 2.9 g/dL (2-4); Potassium 3.9 mmol/L (3.5-5.0); Total Bilirubin 1.2 mg/dL (0.2-1.0); eGFR CKD-EPI 65.6 (>60)
[2021-06-03 13:39] LABS: Troponin I 0.01 ng/mL (<0.03)
[2021-06-03] MEDS ORDERED: Metoprolol Tartrate 5 mg VIAL 5 ml VIAL (1 mg/ml) IV ONE (14:40)
[2021-06-03] MEDS ORDERED: Diltiazem IV push/loading dose 5 MG/ML 5 ML vial (25 mg) IV SLOW PU ONE (15:51)
[2021-06-03] MEDS ORDERED: Diltiazem IV BAG D5W Premix 125 MG/125 ML BAG IV SCH ×2 (16:00→19:00)
[2021-06-03 16:21] LABS: Troponin I 0.03 ng/mL (<0.03)
[2021-06-03 17:40] LABS: Magnesium 2.2 mg/dL (1.9-2.7)
[2021-06-03] MEDS ORDERED: Potassium Chlor 20 meq TAB.ER PO ONE (18:32)
[2021-06-03] MEDS ORDERED: Dextrose 50% Syringe 50 ml 25 GM/50 ML SYRINGE IV PUSH PRN (18:33)
[2021-06-04] MEDS ORDERED: NS 0.9% 500 ml BAG 500 ML IV ONE (01:09)
[2021-06-04] MEDS ORDERED: Digoxin IV 0.5 MG/2 ML AMP (0.25 MG/ML) IV SLOW PU ONE (01:12)
[2021-06-04] MEDS ORDERED: Metoprolol Tartrate 5 mg VIAL 5 ml VIAL (1 mg/ml) IV ONE (03:27)
[2021-06-04 05:55] LABS: ABS Eosinophils 0.1 10^3/ul (0-0.6); ABS Lymphocytes 2.1 10^3/ul (1.0-4.8); ABS Monocytes 0.7 10^3/ul (0-0.8); ABS Neutrophils 3.3 10^3/ul (1.5-7.7); Hematocrit 42 % (42-52); Hemoglobin 14.3 g/dL (14.0-18.0); Lymphocyte % 33.2 %; Mean Corpuscular HGB Conc 34 g/dL (31-36); Mean Corpuscular Hemoglobin 31 pg (27-31); Mean Corpuscular Volume 92 fL (80-94); Mean Platelet Volume 8.4 fL (7.4-10.4); Nucleated Red Blood Cells % 0.2; Platelet Count 185 10^3/uL (150-450); Red Blood Count 4.58 10^6 /uL (4.18-5.48); Red Cell Distribution Width 15 % (10-15); White Blood Count 6.3 10^3/uL (3.5-10.8)
[2021-06-04 06:09] LABS: Calcium 9.1 mg/dL (8.6-10.3); HDL Cholesterol 34.8 mg/dL; Potassium 3.8 mmol/L (3.5-5.0); eGFR CKD-EPI 60.2 (>60)
[2021-06-04] MEDS ORDERED: Potassium Chlor 20 meq TAB.ER PO ONE (08:16)
[2021-06-04] MEDS ORDERED: Perflutren Lipid Microsphere 3 ML VIAL ONE (09:46)
[2021-06-04] MEDS ORDERED: fentaNYL 100 mcg/2 ml 50 MCG/ML VIAL ONE (10:35)
[2021-06-04] MEDS ORDERED: Naloxone 0.4 mg VIAL 0.4 mg/ml 1 ml VIAL ONE (10:35)
[2021-06-04] MEDS ORDERED: Flumazenil 0.5 mg/5 ml 0.1 MG/ML 5 ml VIAL ONE (10:35)
[2021-06-04] MEDS ORDERED: Midazolam 5 mg/5 ml VIAL 1 mg/ml 5 ml VIAL (5 mg) ONE (10:35)
[2021-06-04 15:52] VITALS: BP 145/67
== END 2021-06-04 17:44 | disposition home or self-care (01) ==
LOC: ED 10:47 → MEDTELE 10:47
PROVIDERS: ADMIT Hospitalist; ATTEND Hospitalist
PROC: CARDVER (ICD-10-PCS; 2021-06-04 13:50)